=== PATIENT | female | born 1985 | race Caucasian/White ===

== ENCOUNTER 2021-04-29 23:37 | Emergency (ER) | payer MEDICAID, OTHER, SELFPAY ==
[~2021-04-29] VITALS: Ht 162.6 cm; Wt 63.2 kg
[2021-04-29 23:53] VITALS: BP 114/73
[2021-04-29] MEDS ORDERED: IBUPROFEN 800 MG TABLET ONE (23:57)
[2021-04-29] MEDS ORDERED: AMOXICILLIN 500 MG CAPSULE ONE (23:57)
--- NOTE | 2021-04-29 23:59 | NUR ---
PATIENT MEDICATED PER MAR.
[2021-04-30] MEDS ORDERED: IBUPROFEN 800 MG TABLET PO ONE
[2021-04-30] MEDS ORDERED: AMOXICILLIN 500 MG CAPSULE PO ONE
--- NOTE | 2021-04-30 00:05 | NUR ---
Patient given discharge instructions and they have confirmed that they understand the instructions. Patient ambulatory with steady gait. NAD, all questions answered appropriately, denies additional needs at this time. No personal belongings left in room after discharge.
== END 2021-04-30 00:07 | disposition home or self-care (01) ==
LOC: ED 23:59
DX: K02.9 Dental caries, unspecified (principal); K04.7 Periapical abscess without sinus; R00.0 Tachycardia, unspecified
CPT/HCPCS: 99283